=== PATIENT | male | born 1980 | race Caucasian/White ===

== ENCOUNTER 2016-11-02 21:46 | Emergency (ER) | payer SELFPAY ==
[~2016-11-02] VITALS: Ht 177.8 cm; Wt 74.5 kg
[~2016-11-02 21:46] MED LIST: NO MEDICATIONS
== END 2016-11-02 22:25 | disposition home or self-care (01) ==
LOC: SED 21:46
DX: R10.9 Unspecified abdominal pain (principal)
CPT/HCPCS: 99284